=== PATIENT | male | born 1995 | race Caucasian/White ===

== ENCOUNTER 2021-10-12 20:47 | Emergency (ER) | payer MEDICAID ==
[~2021-10-12] VITALS: Ht 167.6 cm; Wt 84.0 kg
[2021-10-12] MEDS ORDERED: HYDROCODONE/ACETAMINOPHEN 5/325MG TABLET PO ONE (22:30)
[2021-10-12 22:38] VITALS: BP 126/64
[2021-10-12 23:41] LABS: BASOPHILS % 0.5 % (0.0-2.0); EOSINOPHILS % 0.6 % (0.0-5.0); HEMATOCRIT. 44.1 % (42.0-52.0); LYMPHOCYTES % 15.7 % (20.0-50.0); MEAN CORPUSCULAR HEMOGLOBIN 31.3 pg (28.0-32.0); MEAN PLATELET VOLUME 7.7 fl (7.4-10.4); NEUTROPHILS % 76.2 % (40.0-76.0); PLATELET 380 x1000/uL (130-400); RED CELL DISTRIBUTION WIDTH 13.8 % (11.6-14.6)
[2021-10-12] MEDS ORDERED: BACITRACIN ZINC OINT UDPKT TOP ONE (23:45)
[2021-10-12 23:56] LABS: CHLORIDE 110 mEq/L (98-107)
[2021-10-13] MEDS ORDERED: IOHEXOL-300 100 ML BOTTLE ONE (02:14)
[2021-10-13] MEDS ORDERED: NAPR-681 MT (02:17)
[2021-10-13] MEDS ORDERED: BO1 TP (02:17)
== END 2021-10-13 02:38 | disposition home or self-care (01) ==
LOC: ER 20:47
DX: S80.212A Abrasion, left knee, initial encounter (principal); S80.211A Abrasion, right knee, initial encounter; M79.89 Other specified soft tissue disorders; V03.90XA Pedestrian on foot injured in collision with car, pick-up truck or van, unspecified whether traffic or nontraffic accident, initial encounter; Y93.01 Activity, walking, marching and hiking; Y92.488 Other paved roadways as the place of occurrence of the external cause; M25.571 Pain in right ankle and joints of right foot; R10.0 Acute abdomen; D72.829 Elevated white blood cell count, unspecified
CPT/HCPCS: 36415; 73552; 73562; 73590; 73610; 74177; 80053; 83690; 85025; 99285; L1830; Q9967; Z7610; 73630